=== PATIENT | female | born 1985 | race Caucasian/White ===

== ENCOUNTER 2016-11-16 07:44 | Inpatient (IN) | payer OTHER ==
[2016-11-16] MEDS ORDERED: DEXTROSE 5%-LACTATED RINGERS 1,000 ML IV SCH (09:00)
[2016-11-16] MEDS ORDERED: TUBERCULIN PPD 5 TU/0.1ML SYRINGE (IN PATIENT USE ONLY) ID ONE ×3 (09:00→10:30)
[2016-11-16 09:03] VITALS: BMI 30.5
--- NOTE | 2016-11-16 09:10 | HP ---
Past Medical History - Primary Care Physician PCP:: Collin Diaz - Admission Chief Complaint: 31yo P2 with at EGA 37w4d admitted with spontaneous active labor. History of Present Illness: care complicated by: Cholestasis of Thrombocytopenia Asthma History Source: Patient, Medical Record Limitations to Obtaining History: No Limitations - Past Medical History HOSPITAL ADMITTING CLERK: No: Alzheimer's, CVA, Dementia, Migraine, Multiple Sclerosis, Peripheral Neuropathy, Parkinson's, Seizure, Syncope, TIA, Vertigo, Other Cardiovascular: No: AFIB, Aneurysm, Aortic Insufficiency, Aortic Stenosis, CAD, CHF, Deep Vein Thrombosis, HTN, Hyperlipdemia, OR, Mitral Insufficiency, Mitral Stenosis, Murmur, Pulmonary Hypertension, Other Pulmonary: No: Asthma, Bronchitis, Cancer, COPD, O2 Dependent, Pneumonia, Previously Intubated, Pulmonary Embolus, Pulmonary Fibrosis, Sleep Apnea, Other Gastrointestinal: No: Ascites, Cancer, Constipation, Crohn's Disease, Diverticulitis, Diverticulosis, Esophageal Varices, Gastritis, GERD, GI Bleed, Hemorrhoids, Hiatal Hernia, Inflamatory Bowel Disease, Irritable Bowel Disease, Pancreatitis, Peptic Ulcer Disease, Ulcerative Colitis, Other Hepatobiliary: No: Cirrhosis, Cholelithiasis, Cholecystitis, Choledocholithiasis , Hepatitis A, Hepatitis B, Hepatitis C, Other Renal/: No: Renal Failure, Renal Inusuff, BPH, Cancer, Hematuria, Hemodialysis , Neurogenic Bladder, Renal Calculi, UTI, Other Reproductive: No: Ectopic , Endometriosis, Fibroids, PID, Polycystic Ovary Syndrome, Postmenopausal, Other ...: 3 ...Para: 2 ...Term: 2 ...: 0 ...Spon : 0 ...Induced : 0 ...EDC by Sono: 12/03/16 Heme/Onc: Yes: Anemia, Thrombocytopenia Infectious Disease: No: AIDS, C-Diff, Herpes Zoster, HIV, MRSA, STD's, Tuberculosis, VREF, Other Psych: No: Addictions, Anxiety, Bipolar, Depression, Panic, Psychosis, Schizophrenia, Other Musculoskeletal: No: Bursitis, Chronic low back pain, Hemiparesis, Hemiplegia, Osteoarthritis, Paraplegia, Other Rheumatology: No: Fibromyalgia, Gout, Lupus, Rheumatoid Arthritis, Sarcoidosis, Vasculitis, Other ENT: No: Allergic Rhinitis, Sinusitis, Other Endocrine: No: Newport's Disease, Rachelle's Disease, Diabetes Insipidus, Diabetes Mellitus, Hyperparathyroidism, Hyperthyroidism, Hypothyroidism, Osteopenia, SIADH, Other Dermatology: No: Basal Cell, Cellulitis, Eczema, Melanoma, Psoriasis, Squamous Cell, Other - Past Surgical History Past Surgical History: Yes: None Hx Myomectomy: No Hx Transabdominal Cerclage: No - Smoking History Smoking history: Never smoked Have you smoked in the past 12 months: No Aproximately how many cigarettes per day: 0 - Alcohol/Substance Use Hx Alcohol Use: No History of Substance Use: reports: None - Social History Usual Living Arrangement: Yes: With Child ADL: Independent 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 History of Recent Travel: No Home Medications - Allergies Allergies/Adverse Reactions: Allergies Allergy/AdvReac Type Severity Reaction Status Date / Time No Known Allergies Allergy Verified 09/05/16 20:33 - Home Medications Home Medications: Ambulatory Orders Ranitidine HCl [Zantac] 150 mg PO DAILY #14 tablet 09/05/16 Family Disease History - Family Disease History Family History: Denies Review of Systems - Review of Systems Constitutional: reports: Other (painful contractions) Eyes: reports: No Symptoms HENT: reports: No Symptoms Neck: reports: No Symptoms Cardiovascular: reports: No Symptoms Respiratory: reports: No Symptoms Gastrointestinal: reports: No Symptoms Genitourinary: reports: Other (contractions) Breasts: reports: No Symptoms Reported Musculoskeletal: reports: No Symptoms Integumentary: reports: No Symptoms Neurological: reports: No Symptoms Endocrine: reports: No Symptoms Hematology/Lymphatic: reports: No Symptoms Psychiatric: reports: No Symptoms Pain Intensity: 8 Physical Exam - Maternity Vital Signs: Vital Signs Temperature 97.7 F 11/16/16 07:44 Pulse Rate 81 11/16/16 07:44 Respiratory Rate 18 11/16/16 07:44 Blood Pressure 124/72 11/16/16 07:44 O2 Sat by Pulse Oximetry (%) Constitutional: Yes: Well Nourished, No Distress, Calm Eyes: Yes: WNL, Conjunctiva Clear HENT: Yes: WNL, Atraumatic, Normocephalic Neck: Yes: WNL, Supple, Trachea Midline Cardiovascular: Yes: WNL, Regular Rate and Rhythm Lungs: Clear to auscultation, Normal air movement - Abdominal Exam/OB Fundal Height: 37 Number of Fetuses: Single Presentation: Vertex Contractions: Yes Regularity: Irregular (q2-4min) Intensity: Moderate Monitor Mode: External Heart Rate (range): 135 Heart Rate Location: Midline Category: I Accelerations: Non-Uniform Decelerations: None - Vaginal Exam/OB Vaginal Bleediing: Yes Speculum Exam: No Dilatation (cm): 8 Effacement (%): 90 Amniotic Membrane Status: Ruptured (AROM) Amniotic Fluid: Yes: Clear Presentation: Vertex/Position Station: -3 - Physical Exam Musculoskeletal: Yes: WNL Extremities: Yes: WNL Edema: Yes Edema: LLE: Trace, RLE: Trace Integumentary: Yes: WNL Deep Tendon Reflex Grade: Normal +2 ...Motor Strength: WNL Psychiatric: Yes: WNL, Alert, Oriented Hemorrhage Risk Assessment - Risk Factors Medium Risk Factors: Yes: None High Risk Factors: Yes: None Risk Score: 1 Risk Level: Medium Risk Imaging - Results Ultrasound: Report Reviewed Assessment/Plan 31yo P2 with at EGA 37w4d admitted with spontaneous active labor. Fetus with Category I tracing. Plan to monitor labor and anticipate .
[2016-11-16] MEDS ORDERED: PROMETHAZINE HCL 25 MG/1 ML VIAL IVPB ONE (09:15)
[2016-11-16] MEDS ORDERED: BUTORPHANOL TARTRATE 1 MG/ML VIAL IVPB ONE (09:15)
[2016-11-16 09:25] LABS: BASOPHIL 0.4 % (0-2.0); EOSINOPHIL 1.2 % (0-4.5); MCH 25.7 pg (25.7-33.7); MCHC 32.6 g/dl (32.0-36.0); MEAN CELL VOLUME 79.1 fl (80-96); MEAN PLT VOLUME 10.6 fl (7.5-11.1); NEUTROPHILS 73.2 % (42.8-82.8); PLATELET COUNT 89 K/MM3 (134-434); WHITE BLOOD COUNT 9.1 K/mm3 (4.0-10.0)
[2016-11-16 09:44] LABS: ALBUMIN 2.8 g/dl (3.4-5.0); ALK PHOS 169 U/L (45-117); ANION GAP 11 (8-16); BILIRUBIN,TOTAL 0.3 mg/dL (0.2-1.0); CALCIUM 8.5 mg/dL (8.5-10.1); CO2 22 mmol/L (21-32); CREATININE 0.7 mg/dL (0.55-1.02); GLUCOSE,RANDOM 166 mg/dL (74-106); SGOT/AST 25 U/L (15-37); SGPT/ALT 32 U/L (12-78); TOT PROT 6.4 g/dl (6.4-8.2)
[2016-11-16 09:51] LABS: ACTIVATED PTT 25.2 SECONDS (26.9-34.4)
[2016-11-16 10:05] LABS: HIV 1 & 2 AB NEGATIVE; HIV 1 AGp24 NEGATIVE
[2016-11-16] MEDS: D5W-LR W/ 20 UNITS OXYTOCIN 1,000 ML IV SCH ×3 (10:20→18:06)
[2016-11-16] MEDS ORDERED: METHYLERGONOVINE MALEATE 0.2 MG/1 ML AMP IM PRN (11:06)
[2016-11-16] MEDS ORDERED: IBUPROFEN 600 MG TABLET (FP) PO PRN (11:06)
[2016-11-16] MEDS ORDERED: BENZOCAINE 20% 57 GM BOTTLE TP PRN (11:06)
[2016-11-16] MEDS ORDERED: BENZOCAINE 28 GM HEMORRHOIDAL OINTMENT TP PRN (11:06)
[2016-11-16] MEDS ORDERED: BISACODYL 10 MG SUPP.RECT RC PRN (11:06)
[2016-11-16] MEDS ORDERED: ACETAMINOPHEN 325 MG TABLET (FP) PO PRN (11:06)
[2016-11-16] MEDS ORDERED: WITCH HAZEL 50% (TUCKS) 40 PAD/JAR PAD TP PRN (11:06)
--- NOTE | 2016-11-16 11:12 | PN ---
Delivery - Delivery Vaginal Delivery: No Problems, Spontaneous Type of Anesthesia: Local Episiotomy/Laceration: Midline, 2nd degree (laceration) EBL (cc): 300 Delivery, Single - Stages of Labor Date 1st Stage Initiatied: 11/15/16 Time 1st Stage Initiated: 12:00 Date 2nd Stage Initiated: 11/16/16 Time 2nd Stage Initiated: 09:55 Date of Delivery: 11/16/16 Time of Delivery: 10:12 Date Placenta Delivered: 11/16/16 Time Placenta Delivered: 10:20 Placenta: Yes: Spontaneous, Normal Configuration - Condition of Assembler Equipment/Ophthalmic Technician Apprentice Present: No Gender: Female Position: OA Total Hours ROM (Hrs/Mins): 1 hour 45 min - 1 Minute Total Score: 9 5 Minutes Total Score: 10 - Feeding Plan Initial Plan: Exclusive throughout hospitalization Benefits of Exclusively reinforced: Yes
[2016-11-17 09:02] LABS: BASOPHIL 0.4 % (0-2.0); EOSINOPHIL 1.1 % (0-4.5); MCH 25.5 pg (25.7-33.7); MEAN CELL VOLUME 79.7 fl (80-96); NEUTROPHILS 80.4 % (42.8-82.8); PLATELET COUNT 84 K/MM3 (134-434); RDW 14.9 % (11.6-15.6); WHITE BLOOD COUNT 13.9 K/mm3 (4.0-10.0)
[2016-11-17] MEDS: PRENATAL VITAMINS W/ FOLIC ACID TABLET (FP) PO SCH (09:43)
[2016-11-17] MEDS ORDERED: DIPHTH,PERTUSS(ACELL),TET 0.5 ML DISP.SYRIN IM ONE (10:00)
--- NOTE | 2016-11-17 10:43 | PN ---
Post Progress Note - Subjective Subjective: No complaints Post Day: 1 Type of Delivery: Vital Signs: Vital Signs Temperature 97.8 F 11/17/16 09:09 Pulse Rate 73 11/17/16 09:09 Respiratory Rate 20 11/17/16 09:09 Blood Pressure 112/58 11/17/16 09:09 O2 Sat by Pulse Oximetry (%) Breast Exam: Yes: Soft Uterus: Yes: Fundus Firm, Fundus below umbilicus, Non-tender Abdomen/GI: Yes: Abdomen soft, Passing flatus, Tolerating PO Lochia: Yes: Rubra Lochia, amount: Small Extremities: Yes: Calves non-tender Perineum: Yes: Intact Activity: Ambulating - Labs Labs: CBC WBC 13.9 K/mm3 (4.0-10.0) H D 11/17/16 07:35 RBC 3.44 M/mm3 (3.60-5.2) L 11/17/16 07:35 Hgb 8.8 GM/dL (10.7-15.3) L D 11/17/16 07:35 Hct 27.4 % (32.4-45.2) L 11/17/16 07:35 MCV 79.7 fl (80-96) L 11/17/16 07:35 MCH 25.5 pg (25.7-33.7) L 11/17/16 07:35 MCHC 32.0 g/dl (32.0-36.0) 11/17/16 07:35 RDW 14.9 % (11.6-15.6) 11/17/16 07:35 Plt Count 84 K/MM3 (134-434) L 11/17/16 07:35 MPV 11.0 fl (7.5-11.1) 11/17/16 07:35 Neutrophils % 80.4 % (42.8-82.8) 11/17/16 07:35 Lymphocytes % 13.0 % (8-40) D 11/17/16 07:35 Monocytes % 5.1 % (3.8-10.2) 11/17/16 07:35 Eosinophils % 1.1 % (0-4.5) 11/17/16 07:35 Basophils % 0.4 % (0-2.0) 11/17/16 07:35 Assessment/Plan 31yo P3 s/p , doing well stable, afebrile. care instructions reviewed. Continue routine care. Ambulation encouraged Discharge instruction reviewed.
[2016-11-17] MEDS ORDERED: SENNOSIDES/DOCUSATE COMBO (SENNA PLUS) TABLET (UD) PO PRN (22:00)
[2016-11-18] MEDS: PRENATAL VITAMINS W/ FOLIC ACID TABLET (FP) PO SCH (09:22)
[2016-11-18 10:15] LABS: BASOPHIL 0.3 % (0-2.0); EOSINOPHIL 1.6 % (0-4.5); MCH 26.2 pg (25.7-33.7); MCHC 33.1 g/dl (32.0-36.0); MEAN CELL VOLUME 79.1 fl (80-96); MEAN PLT VOLUME 11.2 fl (7.5-11.1); NEUTROPHILS 79.8 % (42.8-82.8); PLATELET COUNT 121 K/MM3 (134-434); RDW 15.3 % (11.6-15.6); WHITE BLOOD COUNT 13.3 K/mm3 (4.0-10.0)
[2016-11-18 10:22] VITALS: BP 117/58; PULSE 82; TEMP 98.1
--- NOTE | 2016-11-18 10:48 | DS ---
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 Vital Signs: Vital Signs Temperature 98.1 F 11/18/16 10:00 Pulse Rate 82 11/18/16 10:00 Respiratory Rate 18 11/18/16 10:00 Blood Pressure 117/58 11/18/16 10:00 O2 Sat by Pulse Oximetry (%) Constitutional: Yes: Well Nourished, No Distress, Calm Eyes: Yes: WNL, Conjunctiva Clear HENT: Yes: WNL, Atraumatic, Normocephalic Neck: Yes: WNL, Supple, Trachea Midline Cardiovascular: Yes: WNL, Regular Rate and Rhythm Respiratory: Yes: WNL, Regular, CTA Bilaterally Gastrointestinal: Yes: WNL, Normal Bowel Sounds, Soft ...Rectal Exam: Yes: Deferred Renal/: Yes: WNL Internal Exam Deferred: Yes ....Post : Yes: Uterus firm, Uterus non-tender Breast(s): Yes: WNL Musculoskeletal: Yes: WNL Extremities: Yes: WNL Edema: Yes Edema: LLE: Trace, RLE: Trace Integumentary: Yes: WNL Neurological: Yes: WNL, Alert, Oriented ...Motor Strength: WNL Psychiatric: Yes: WNL, Alert, Oriented Labs: CBC, BMP 11/18/16 10:00 11/16/16 09:00 Delivery - Delivery Vaginal Delivery: No Problems, Spontaneous Type of Anesthesia: Local Episiotomy/Laceration: Midline, 2nd degree (laceration) EBL (cc): 300 Delivery, Single - Stages of Labor Date 1st Stage Initiatied: 11/15/16 Time 1st Stage Initiated: 12:00 Date 2nd Stage Initiated: 11/16/16 Time 2nd Stage Initiated: 09:55 Date of Delivery: 11/16/16 Time of Delivery: 10:12 Time Placenta Delivered: 10:20 Placenta: Yes: Spontaneous, Normal Configuration - Condition of Locks Tender/Director Print Present: No Gender: Female Weight: 3.062 kg Position: OA Total Hours ROM (Hrs/Mins): 1 hour 45 min - 1 Minute Total Score: 9 5 Minutes Total Score: 10 - Feeding Plan Initial Plan: Exclusive throughout hospitalization Benefits of Exclusively reinforced: Yes Discharge Summary Reason For Visit: LABOR Procedures: Principal: Hospital Course: Normal recovery Condition: Good - Instructions Diet, Activity, Other Instructions: Physical activity Resume your normal everyday activity as tolerated no heavy lifting or exercise until seen by your surgeon. You may walk unlimited harjinder of and climb stairs. You may resume driving the car when you feel safe and comfortable behind the wheel. No sexual activity as instructed. Wound care If you have a bandage, leave it on, and keep dry for 48-72 hours. After that time discard the outer bandage. If they are tapes on the skin under the out of bandage leave them in place. They will peel off in the next 7 to 10 days. Do Not Peel them off. You may shower the day after surgery. If there are tapes present on the skin, you may shower over them. Diet There are no dietary restrictions. Eat healthy, high-fiber foods. Drink 6 to 8 glasses of liquid each day. This will assist in keeping your bowels are regular. Pain management You may take Tylenol or acetaminophen or Ibuprofen (for example, Motrin, Advil etc.) from my pain prescription medication is ordered should be taken as prescribed for moderate to severe pain. Call MD for any of the following: Severe pain not relieved by medication Fever of 101 or higher Excessive bleeding or drainage on dressing Inability to urinate Referrals: Taylor Muniz MD [Staff Physician] - Disposition: HOME - Home Medications Comprehensive Discharge Medication List: Ambulatory Orders Albuterol Sulfate Inhaler - [Ventolin HFA Inhaler -] 2 inh PO PRN PRN 11/16/16 Vit/Iron Fumarate/FA [ Tablet] 1 tab PO DAILY 11/16/16
[2016-11-18] MEDS: D5W-LR W/ 20 UNITS OXYTOCIN 1,000 ML IV SCH (11:13)
== END 2016-11-18 13:45 | disposition home or self-care (01) | DRG 560 ==
LOC: JLDR 07:44 → MERGE 07:44 → J3W 12:45
PROVIDERS: ADMIT Obstetrics & Gynecology; ATTEND Obstetrics & Gynecology
PROC: 10E0XZZ Delivery of Products of Conception, External Approach (ICD-10-PCS; principal; 2016-11-16)
PROC: 0W8NXZZ Division of Female Perineum, External Approach (ICD-10-PCS; 2016-11-16)
PROC: 0KQM0ZZ Repair Perineum Muscle, Open Approach (ICD-10-PCS; 2016-11-16)
DX: O99.113 Other diseases of the blood and blood-forming organs and certain disorders involving the immune mechanism complicating pregnancy, third trimester (principal); O26.613 Liver and biliary tract disorders in pregnancy, third trimester; K83.1 Obstruction of bile duct; D69.6 Thrombocytopenia, unspecified; O70.1 Second degree perineal laceration during delivery; O26.893 Other specified pregnancy related conditions, third trimester; J45.909 Unspecified asthma, uncomplicated; Z3A.37 37 weeks gestation of pregnancy; Z37.0 Single live birth
CPT/HCPCS: 36415; 59409; 80053; 85025; 85610; 85730; 86593; 86850; 86900; 86901; 87389; 90715

== ENCOUNTER 2017-04-17 17:39 | Emergency (ER) | payer OTHER ==
[2017-04-17] MEDS ORDERED: ALBUTEROL SO4 2.5/IPRATROPIUM 0.5 INH SOL 3 ML VIAL.NEB. NEB ONE ×4 (17:49→18:45)
--- NOTE | 2017-04-17 17:49 | PDOC ---
Rapid Medical Evaluation Time Seen by Provider: 04/17/17 17:48 Medical Evaluation: Allergies Allergy/AdvReac Type Severity Reaction Status Date / Time No Known Allergies Allergy Verified 09/05/16 20:33 04/17/17 17:48 The patient presents with a chief complaint of: Asthma attack last night which woke her from sleep. used nebulizer at home 4 times; instructed to come in by PCP. No fevers/cold like symptoms I have performed a brief in-person evaluation of this patient; Pertinent physical exam findings: Inspiratory and expiratory wheezing. Afebrile , O2 sat 98 % I have ordered the following: Duoneb The patient will proceed to the ED for further evaluation.
[2017-04-17 17:52] VITALS: BP 116/74; PULSE 87; TEMP 98.8; BMI 26.9
[2017-04-17] MEDS ORDERED: predniSONE 20 MG TABLET (UD) PO ONE (18:37)
--- NOTE | 2017-04-17 18:43 | PDOC ---
History of Present Illness - General Chief Complaint: Wheezing Stated Complaint: ASTHMA Time Seen by Provider: 04/17/17 17:48 History Source: Patient Exam Limitations: No Limitations - History of Present Illness Initial Comments: 04/17/17 18:38 Patient here with complaints of acute onset of asthma attack. was sleeping this morning when was awakened at 1 AM with shortness of breath and wheezing. Denies being ill recently, no fevers earache sore throat. No One else at home sick Suffers from seasonal ALLERGIES and has had asthma but no recent attacks since last spring. used pump a few times with minimal resolved, then got up and do sense nebulizer which helped her sleep however has used his nebulizing treatment 3 more times today. Went felt that asthma attack was not stopping decided to come to ER for evaluation. States on her arrival it was difficult to speak due to her shortness of breath Severity: reports: moderate Associated Symptoms: reports: cough, nasal congestion, wheezing. denies: fever/ chills Past History - Travel Traveled outside of the country in the last 30 days: No Close contact w/someone who was outside of country & ill: No - Past Medical History Allergies/Adverse Reactions: Allergies Allergy/AdvReac Type Severity Reaction Status Date / Time No Known Allergies Allergy Verified 04/17/17 17:51 Home Medications: Ambulatory Orders Albuterol 0.083% Nebulizer Rebekah [Ventolin 0.083% Nebulizer Soln -] 1 neb NEB Q4H PRN #30 vial 04/17/17 Prednisone [Deltasone -] 20 mg PO BID #8 tablet 04/17/17 Asthma: Yes Cancer: No Cardiac Disorders: No COPD: No Diabetes: No HTN: No Seizures: No Thyroid Disease: No - Immunization History Immunization Up to Date: Yes - Suicide/Smoking/Psychosocial Hx Smoking Status: No Smoking History: Never smoked Have you smoked in the past 12 months: No Number of Cigarettes Smoked Daily: 0 Information on smoking cessation initiated: No Hx Alcohol Use: No Drug/Substance Use Hx: No Substance Use Type: None Hx Substance Use Treatment: No Respiratory Specific PMHX - Complaint Specific PMHX Angina: No Review of Systems - Review of Systems Able to Perform ROS?: Yes Is the patient limited Belarusian proficient: Yes Constitutional: Yes: Symptoms Reported, See HPI, Malaise. No: Chills, Fever HEENTM: Yes: Symptoms Reported, See HPI, Nose Congestion Respiratory: Yes: Symptoms reported, See HPI, Wheezing Integumentary: Yes: Symptoms Reported Neurological: Yes: Symptoms reported All Other Systems: Reviewed and Negative *Physical Exam - Vital Signs Last Vital Signs Temp Pulse Resp BP Pulse Ox 98.8 F 87 19 116/74 99 04/17/17 17:49 04/17/17 17:49 04/17/17 17:49 04/17/17 17:49 04/17/17 17:49 - Physical Exam General Appearance: Yes: Appropriately Dressed, Apparent Distress HEENT: positive: FANNY, Normal ENT Inspection, TMs Normal, Pharynx Normal Neck: positive: Tender, Supple. negative: Lymphadenopathy (R), Lymphadenopathy (L) Respiratory/Chest: positive: Lungs Clear, Wheezing. negative: Normal Breath Sounds Gastrointestinal/Abdominal: positive: Soft. 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 NML intact, Fully Oriented, Alert, Normal Mood/ Affect, Normal Response, Motor Strength 5/5 ED Treatment Course - Medications Given in the ED: ED Medications Discontinued Medications Generic Name Dose Route Start Last Admin Trade Name Freq PRN Reason Stop Dose Admin Albuterol/Ipratropium 1 amp 04/17/17 17:49 04/17/17 17:57 Duoneb - NEB 04/17/17 17:50 1 amp ONCE ONE Administration Progress Note - Progress Note Progress Note: Asthma exacerbation we'll treat with DuoNeb nebs and steroids Medical Decision Making - Medical Decision Making 04/17/17 19:35 Patient much improved after 3 DuoNeb's, and prednisone. States feels she is able to take deep inspirations with less wheezing and ready for discharge. *DC/Admit/Observation/Transfer Diagnosis at time of Disposition: Asthma with exacerbation Qualifiers: Asthma severity: moderate Asthma persistence: unspecified Qualified Code(s): J45.901 - Unspecified asthma with (acute) exacerbation - Discharge Dispostion Disposition: HOME Condition at time of disposition: Stable Admit: No - Prescriptions Prescriptions: Albuterol 0.083% Nebulizer Rebekah [Ventolin 0.083% Nebulizer Soln -] 1 neb NEB Q4H PRN #30 vial PRN Reason: Cough Prednisone [Deltasone -] 20 mg PO BID #8 tablet - Referrals Referrals: Sung Santiago [Primary Care Provider] - - Patient Instructions Printed Discharge Instructions: DI for Asthma -- Adult Additional Instructions: Rest, drink lots of fluids: Teas, water, soups, Pedialyte Saltwater gargles Steamy showers/seem to face break up mucus Avoid contact with others until fevers and cough resolved Lots of handwashing and good hygiene Continue [id number] medications for symptomatic relief Tylenol or Motrin for fever and pain Continue albuterol nebulizers every 4-6 hours for the next 2 days then as needed for continued cough Prednisone as directed until completed Followup with private physician in one to 2 days Return to emergency department / pediatric hospital for worsened symptoms, fevers, dehydration - Post Discharge Activity Forms/Work/School Notes: Back to Work
[2017-04-17] MEDS ORDERED: predniSONE 20 MG TABLET (UD) ONE (18:44)
== END 2017-04-17 19:43 | disposition home or self-care (01) ==
LOC: JERFT 17:39
PROC: 3E0F7GC Introduction of Other Therapeutic Substance into Respiratory Tract, Via Natural or Artificial Opening (ICD-10-PCS; principal; 2017-04-17)
DX: J45.901 Unspecified asthma with (acute) exacerbation (principal)
CPT/HCPCS: 99281-25

== ENCOUNTER 2017-04-30 22:41 | Emergency (ER) | payer OTHER ==
[2017-04-30 23:04] VITALS: BP 102/60; PULSE 90; TEMP 98.5; BMI 26.5
--- NOTE | 2017-05-01 01:29 | PDOC ---
History of Present Illness - History of Present Illness Initial Comments: 05/01/17 02:00 Patient is 32F with PMHx of asthma, who presents with 1 week of generalized malaise and head/neck lymph node. Patient states she has a lymph node near the back of her neck, underneath her head and states its only a little bothersome. She also admits to tactile fever but says she hasn't taken her temperature. Denies sick contacts. She came to the ED because she has a 5 months and is so she wants to make sure she is healthy. Allergies: NKDA <Nedra Richards - Last Filed: 05/01/17 01:59> - General History Source: Patient <RemiCooper cabrera - Last Filed: 05/01/17 04:12> - General Chief Complaint: Pain Stated Complaint: HEADACHE Time Seen by Provider: 05/01/17 01:20 Past History <Nedra Richards - Last Filed: 05/01/17 01:59> - Past Medical History Asthma: Yes Cancer: No Cardiac Disorders: No COPD: No Diabetes: No HTN: No Seizures: No Thyroid Disease: No - Immunization History Immunization Up to Date: Yes - Suicide/Smoking/Psychosocial Hx Smoking Status: No Smoking History: Never smoked Have you smoked in the past 12 months: No Number of Cigarettes Smoked Daily: 0 Hx Alcohol Use: No Drug/Substance Use Hx: No Substance Use Type: None Hx Substance Use Treatment: No <Cooper Casiano - Last Filed: 05/01/17 04:12> - Past Medical History Allergies/Adverse Reactions: Allergies Allergy/AdvReac Type Severity Reaction Status Date / Time No Known Allergies Allergy Verified 04/30/17 23:00 Home Medications: Ambulatory Orders Albuterol Sulfate Inhaler - [Ventolin Hfa Inhaler -] 1 - 2 inh PO QID PRN Review of Systems - Review of Systems Comments:: 05/01/17 02:03 CONSTITUTIONAL: Present: tactile fever, generalized malaise HEENT: Present: Head/neck lymph node Absent: visual changes, ear pain, no sore throat CARDIOVASCULAR: Absent: chest pain, no palpitations RESPIRATORY: Absent: cough, no SOB GI: Absent: abdominal pain, no nausea, no vomiting, no constipation, no diarrhea GENITOURINARY: Absent: dysuria, no frequency, no hematuria MUSCULOSKELETAL: Absent: back pain, no arthralgia, no myalgia SKIN: Absent: rash <Nedra Richards - Last Filed: 05/01/17 01:59> *Physical Exam - Vital Signs Last Vital Signs Temp Pulse Resp BP Pulse Ox 98.5 F 90 18 102/60 96 04/30/17 23:01 04/30/17 23:01 04/30/17 23:01 04/30/17 23:01 04/30/17 23:01 - Physical Exam Comments: 05/01/17 02:05 GENERAL: Well-appearing, well-nourished. No apparent distress. HEENT: Normocephalic, atraumatic. PERRL, EOM intact. CARDIOVASCULAR: Normal S1, S2. Regular rate and rhythm. PULMONARY: Clear to auscultation bilaterally. ABDOMEN: Soft, non-distended, non-tender. EXTREMITIES: Normal ROM in all four extremities. No gross deformities. SKIN: Warm, dry. No rash NEUROLOGICAL: No focal neurological deficits. <Nedra Richards - Last Filed: 05/01/17 01:59> - Vital Signs Last Vital Signs Temp Pulse Resp BP Pulse Ox 98.5 F 90 18 102/60 96 04/30/17 23:01 04/30/17 23:01 04/30/17 23:01 04/30/17 23:01 04/30/17 23:01 <Cooper Casiano - Last Filed: 05/01/17 04:12> Medical Decision Making - Medical Decision Making 05/01/17 04:12 Dr. Casiano: The scribe's documentation has been prepared under my direction and personally reviewed by me in its entirery. I confirm that the note above accurately reflects all work, treatment, procedures, and medical decision making performed by me. <Cooper Casiano - Last Filed: 05/01/17 04:12> *DC/Admit/Observation/Transfer - Attestations Scribe Attestion: 05/01/17 02:05 Documentation prepared by Nedra Richards, acting as medical equipment repair technician for Cooper Casiano MD. <Nedra Richards - Last Filed: 05/01/17 01:59> - Discharge Dispostion Admit: No <Cooper Casiano - Last Filed: 05/01/17 04:12> Diagnosis at time of Disposition: Neck pain, Lymph node enlargement - Discharge Dispostion Disposition: HOME Condition at time of disposition: Stable - Referrals Referrals: Sung Santiago [Primary Care Provider] - - Patient Instructions Printed Discharge Instructions: DI for Neck Pain Additional Instructions: Please follow up with your doctor to revaluate the lymph node in the back of your neck if it appears to get worse. - Post Discharge Activity
== END 2017-05-01 04:15 | disposition home or self-care (01) ==
LOC: JER 22:41
DX: R59.9 Enlarged lymph nodes, unspecified (principal); M54.2 Cervicalgia
CPT/HCPCS: 87804; 99281-25

== ENCOUNTER 2017-05-22 12:19 | Emergency (ER) | payer OTHER ==
[2017-05-22 12:46] VITALS: BP 108/65; PULSE 97; TEMP 98; BMI 26.5
[2017-05-22] MEDS ORDERED: ALBUTEROL SO4 2.5/IPRATROPIUM 0.5 INH SOL 3 ML VIAL.NEB. NEB ONE ×2 (14:01→14:09)
--- NOTE | 2017-05-22 14:13 | PDOC ---
History of Present Illness - General Chief Complaint: Asthma Stated Complaint: ASTHMA, WHEEZING Time Seen by Provider: 05/22/17 13:51 History Source: Patient Exam Limitations: No Limitations - History of Present Illness Initial Comments: 05/22/17 14:11 Patient is a 32-year-old female, history of asthma currently taking albuterol when necessary presents with cough and wheezing for 5 days. Reports using her albuterol at home every 4 hours still with wheezing. Reports last time she had this she needed steroids. Patient able to speak full sentences, denies chest pain. Past Medical History: [Denies]. Allergies: No known allergies Medications: [Abuser all] Family History: Non-contributory Social History: Denies smoking, alcohol use, or IVDU Vital signs on arrival are [notable for pulse of 96.] Review of Systems GENERAL/CONSTITUTIONAL: [No fever or chills. No weakness. No weight change.] HEAD, EYES, EARS, NOSE AND THROAT: [No change in vision. No ear pain or discharge. No sore throat. ] CARDIOVASCULAR: [No chest pain or shortness of breath.] RESPIRATORY: [Cough and wheezing, no hemoptysis] GASTROINTESTINAL: [No nausea, vomiting, diarrhea or constipation. No rectal bleeding.] GENITOURINARY: [No dysuria, frequency, or change in urination.] MUSCULOSKELETAL: [No joint or muscle swelling or pain. No neck or back pain.] SKIN AND BREASTS: [No rash or easy bruising.] NEUROLOGIC: [No headache, vertigo, loss of consciousness, or loss of sensation.] PSYCHIATRIC: [No depression or anxiety.] ENDOCRINE: [No increased thirst. No abnormal weight change.] HEMATOLOGIC/LYMPHATIC: [No anemia, easy bleeding, or history of blood clots.] ALLERGIC/IMMUNOLOGIC: [No hives or skin allergy. No latex allergy.] Physical Exam: GENERAL: [The patient is awake, alert, and fully oriented, in no acute distress. ] EYES: [Pupils equal, round and reactive to light, extraocular movements intact, sclera anicteric, conjunctiva clear.] ENT: [Ears normal, nares patent, oropharynx clear without exudates. Moist mucous membranes. No uvula deviation] NECK: [Normal range of motion, supple without lymphadenopathy, JVD, or masses.] LUNGS: [Expiratory wheezes, no rhonchi, no crackles] HEART: [Regular rate and rhythm, normal S1 and S2 without murmur, rub or gallop. ] ABDOMEN: [Soft, nontender, normoactive bowel sounds. No guarding, no rebound. No masses. No bruising or abrasions] MUSCULOSKELETAL: [Normal range of motion, no edema. No clubbing or cyanosis. No cords, erythema, or tenderness. No CVA Tenderness with fist.] NEUROLOGICAL: [Cranial nerves II through XII grossly intact. Normal speech, normal gait.] SKIN: [Warm, Dry, normal turgor, no rashes or lesions noted.] Past History - Past Medical History Allergies/Adverse Reactions: Allergies Allergy/AdvReac Type Severity Reaction Status Date / Time No Known Allergies Allergy Verified 05/22/17 12:42 Home Medications: Ambulatory Orders Prednisone [Deltasone] 20 mg PO DAILY #5 tablet 05/22/17 Asthma: Yes Cancer: No Cardiac Disorders: No CVA: No COPD: No DVT: No Diabetes: No HTN: No Seizures: No Thyroid Disease: No - Immunization History Immunization Up to Date: Yes - Suicide/Smoking/Psychosocial Hx Smoking Status: No Smoking History: Never smoked Have you smoked in the past 12 months: No Number of Cigarettes Smoked Daily: 0 Information on smoking cessation initiated: No Hx Alcohol Use: No Drug/Substance Use Hx: No Substance Use Type: None Hx Substance Use Treatment: No Respiratory Specific PMHX - Complaint Specific PMHX Angina: No *Physical Exam - Vital Signs Last Vital Signs Temp Pulse Resp BP Pulse Ox 98.0 F 97 H 20 108/65 96 05/22/17 12:43 05/22/17 12:43 05/22/17 12:43 05/22/17 12:43 05/22/17 12:43 Medical Decision Making - Medical Decision Making 05/22/17 14:12 A/P: Patient with asthma exacerbation wheezing noted, expiratory. Will give Combivent and prednisone. 05/22/17 14:54 After Combivent, there is a mild expiratory wheeze noted on the right side will discharge patient home on prednisone she is breast-feeding will give 20 mg per day I have advised patient to breast-feed at least 4 hours after taking medication. Albuterol when necessary Follow-up with PMD if symptoms persist *DC/Admit/Observation/Transfer Diagnosis at time of Disposition: Asthma with exacerbation Qualifiers: Asthma severity: mild Asthma persistence: intermittent Qualified Code(s): J45.21 - Mild intermittent asthma with (acute) exacerbation - Discharge Dispostion Disposition: HOME Condition at time of disposition: Stable Admit: No - Prescriptions Prescriptions: Prednisone [Deltasone] 20 mg PO DAILY #5 tablet - Referrals Referrals: Sung Santiago [Primary Care Provider] - - Patient Instructions Printed Discharge Instructions: Asthma -- Adult Additional Instructions: Keep head of bed elevated 45 when sleeping Treatments every 4 hours as needed Cool air humidifier Followup in the primary care doctor's office in 2 days for evaluation. If any respiratory distress, increased cough, inability to drink, increased wheezing please return immediately to emergency department. - Post Discharge Activity Forms/Work/School Notes: Back to Work
== END 2017-05-22 14:59 | disposition home or self-care (01) ==
LOC: JERFT 12:19
PROC: 3E0F7GC Introduction of Other Therapeutic Substance into Respiratory Tract, Via Natural or Artificial Opening (ICD-10-PCS; principal; 2017-05-22)
DX: J45.21 Mild intermittent asthma with (acute) exacerbation (principal)
CPT/HCPCS: 99281-25

== ENCOUNTER 2019-11-27 11:59 | Emergency (ER) | payer OTHER ==
[2019-11-27 12:18] VITALS: BMI 24.7
[2019-11-27] MEDS ORDERED: ALBUTEROL SO4 2.5/IPRATROPIUM 0.5 INH SOL 3 ML VIAL.NEB. NEB ONE ×3 (12:20→14:03)
[2019-11-27] MEDS ORDERED: predniSONE 20 MG TABLET (UD) PO ONE (12:47)
--- NOTE | 2019-11-27 12:52 | PDOC ---
Attending Attestation - Resident Resident Name: Radames Hoffman - HPI HPI: 11/27/19 12:54 Pt presents to the ED complaining of a one week history of wheezing and shortness of breath consistent with prior asthma exacerbations. states that she has tried albuterol inhaler and nebs at home without relief. States that she was seen in Urgent care twice for the same complaint and that she was given a covid test which has not been resulted yet, but otherwise told that she was fine and to go home. Denies fever. Complains of chest tightness and some palpitations, but denies chest pain. History of asthma without hospitalizations or intubations in the past. - Physicial Exam PE: 11/27/19 13:09 agree with resident exam. Patient is alert and in no acute distress. Lungs are clear, with good air entry. Patient is not tachypneic and is speaking in complete sentences. - Medical Decision Making 11/27/19 13:11 Pt presents to the ED complaining of wheezing and shortness of breath consistent with prior asthma exacerbations. Patient is feeling improved after duoneb x 1 and has no respiratory distress. Will treat with nebs and steroids and reassess, likely discharge home with short course of PO prednisone and PCP follow up. Discharge - Discharge Information Problems reviewed: Yes Clinical Impression/Diagnosis: Asthma with exacerbation Qualifiers: Asthma severity: mild Asthma persistence: unspecified Qualified Code(s): J45.901 - Unspecified asthma with (acute) exacerbation Condition: Improved Disposition: HOME - Additional Discharge Information Prescriptions: predniSONE [Deltasone -] 40 mg PO DAILY #10 tablet - Follow up/Referral Referrals: Sung Santiago [Primary Care Provider] - - Patient Discharge Instructions Additional Instructions: You were seen today, 11/27/19, for an episode of acute asthma exacerbation. You were treated with 3 doses of duoneb and 1 dose of 60 mg of Prednisone. You reported significant improvement on re evaluation. You did not have any active wheezing auscultated in physical exam. You were clinically stable to go home. Please follow up with your primary care doctor within the next two days to discuss management of your asthma Take prednisone 40 mg orally ( 2 tablets) every day for 5 days. Please return to ER immediately if you experience: - respiratory distress - chest pain, chest tightness - increased wheezing - any changes form your baseline - Post Discharge Activity
[2019-11-27] MEDS ORDERED: predniSONE 20 MG TABLET (UD) ONE (12:54)
--- NOTE | 2019-11-27 12:58 | PDOC ---
History of Present Illness - General Chief Complaint: Shortness of Breath Stated Complaint: ASTHMA Time Seen by Provider: 11/27/19 12:19 History Source: Patient - History of Present Illness Initial Comments: Lexi Rasmussen is a 34 Y F with PMH of Asthma, presents with 1 weeks of wheezing , SOB and chest tightness. She tried albuterol nebulizer and montelucast at home without any improvements. Last similar episode was last year, presented to ER, and resolved after treatments with douneb and prednisone. She reports her asthma is usually under control, but can be exacerbated with allergies. She reports t hat she had uri symptoms few days ago, resolved, sorethroat, nasal congestion, and cough. No known covid in family, children had similar symptoms and recovered. She does not smoke, social alcohol and no illicit drugs. LMP 4 weeks ago. Most recent asthma exacerbation was last year. No previous Hx of hospitalization or intubation, due to asthma exacerbation. Home meds: albuterol and montelucast 11/27/19 12:49 Timing/Duration: 1 week Severity: moderate Past History - Travel History Traveled outside of the country in the last 30 days: No - Medical History Allergies/Adverse Reactions: Allergies Allergy/AdvReac Type Severity Reaction Status Date / Time No Known Allergies Allergy Verified 11/27/19 12:10 Home Medications: Ambulatory Orders Albuterol 0.083% Nebulizer Rebekah [Ventolin 0.083%] 1 neb NEB QID PRN 11/27/19 Montelukast Na [Singulair -] 10 mg PO HS 11/27/19 predniSONE [Deltasone -] 40 mg PO DAILY #10 tablet 11/27/19 Asthma: Yes Cancer: No Cardiac Disorders: No CVA: No COPD: No DVT: No Diabetes: No HTN: No Seizures: No Thyroid Disease: No - Reproductive History Is Patient Now?: No - Immunization History Immunization Up to Date: Yes - Psycho-Social/Smoking History Smoking Status: No Smoking History: Never smoked Have you smoked in the past 12 months: No Number of Cigarettes Smoked Daily: 0 - Substance Abuse Hx (Audit-C & DAST Scrn) How often the patient has a drink containing alcohol: Monthly or less Score: In Men: 4 or > Positive; In Women: 3 or > Positive: 1 Screen Result (Pos requires Nsg. Audit-10AR): Negative In the last yr the pt used illegal drug/Rx for NonMed reason: No Score: Yes response is considered Positive: 0 Screen Result (Positive result requires Nsg. DAST-10): Negative Review of Systems - Review of Systems Constitutional: No: Chills, Fever HEENTM: No: Blurred Vision, Nose Congestion, Throat Pain, Difficulty Swallowing Respiratory: Yes: Cough, Shortness of Breath, Wheezing Cardiac (ROS): Yes: Chest Tightness. No: Chest Pain, Edema, Palpitations ABD/GI: No: Diarrhea, Difficulty Swallowing, Nausea, Vomiting : No: Dysuria, Discharge, Flank Pain Musculoskeletal: No: Back Pain Integumentary: No: Change in Color Neurological: Yes: Headache. No: Numbness, Paresthesia Psychiatric: Yes: Anxiety *Physical Exam - Vital Signs Last Vital Signs Temp Pulse Resp BP Pulse Ox 98.1 F 90 22 H 106/70 99 11/27/19 12:15 11/27/19 12:15 11/27/19 12:15 11/27/19 12:15 11/27/19 12:38 - Physical Exam General Appearance: Yes: Appropriately Dressed, Mild Distress HEENT: positive: EOMI, FANNY. negative: Nasal Congestion, Rhinorrhea Neck: positive: Supple. negative: Carotid bruit Respiratory/Chest: positive: Lungs Clear, Normal Breath Sounds, Wheezing (Anterior chest wall, expiratory). negative: Chest Tender, Rales, Rhonchi Cardiovascular: positive: Regular Rhythm, Regular Rate, S1, S2. negative: Edema, JVD, Murmur Vascular Pulses: Carotid (R): 2+, Carotid (L): 2+, Dorsalis-Pedis (R): 2+, Doralis-Pedis (L): 2+ Gastrointestinal/Abdominal: positive: Normal Bowel Sounds, Soft. negative: Tender Musculoskeletal: positive: Normal Inspection Extremity: positive: Normal Inspection Integumentary: positive: Normal Color, Warm, Moist Neurologic: positive: Fully Oriented, Alert, Motor Strength 5/5 Medical Decision Making - Medical Decision Making 34 Y F with PMH of Asthma, presents with 1 weeks of wheezing , SOB and chest tightness. She tried albuterol nebulizer and montelucast at home without any improvements. #acute asthma exacerbation - 1 week, not resolving with home meds - EKG - Duoneb + Prednisone PO 60mg - Dispo: reeval 11/27/19 12:58 11/27/19 14:19 - completed 3 doses of duoneb + 60mg of Prednisone - patient reports she feels much better now, no wheezing - Dispo: Re-eval and d/c home. Discharge - Discharge Information Problems reviewed: Yes Clinical Impression/Diagnosis: Asthma with exacerbation Qualifiers: Asthma severity: mild Asthma persistence: unspecified Qualified Code(s): J45.901 - Unspecified asthma with (acute) exacerbation Condition: Improved Disposition: HOME - Additional Discharge Information Prescriptions: predniSONE [Deltasone -] 40 mg PO DAILY #10 tablet - Follow up/Referral Referrals: Sung Santiago [Primary Care Provider] - - Patient Discharge Instructions Additional Instructions: You were seen today, 11/27/19, for an episode of acute asthma exacerbation. You were treated with 3 doses of duoneb and 1 dose of 60 mg of Prednisone. You reported significant improvement on re evaluation. You did not have any active wheezing auscultated in physical exam. You were clinically stable to go home. Please follow up with your primary care doctor within the next two days to discuss management of your asthma Take prednisone 40 mg orally ( 2 tablets) every day for 5 days. Please return to ER immediately if you experience: - respiratory distress - chest pain, chest tightness - increased wheezing - any changes form your baseline - Post Discharge Activity
[2019-11-27 15:03] VITALS: BP 113/70; PULSE 92; TEMP 97.8
--- NOTE | 2019-11-29 21:52 | EKG ---
Test Reason : Blood Pressure : / mmHG Vent. Rate : 098 BPM Atrial Rate : 098 BPM P-R Int : 158 ms QRS Dur : 070 ms QT Int : 352 ms P-R-T Axes : 026 022 031 degrees QTc Int : 449 ms NORMAL SINUS RHYTHM NORMAL ECG WHEN COMPARED WITH ECG OF 08-JUN-2018 10:08, VENT. RATE HAS INCREASED BY 37 BPM Confirmed by DAVE BLANTON MD ([id number]) on 11/29/2019 9:51:34 PM Referred By: Confirmed By:DAVE BLANTON MD
== END 2019-11-27 14:45 | disposition home or self-care (01) ==
LOC: JER 11:59
PROC: 3E0F7GC Introduction of Other Therapeutic Substance into Respiratory Tract, Via Natural or Artificial Opening (ICD-10-PCS; principal; 2019-11-27)
DX: J45.901 Unspecified asthma with (acute) exacerbation (principal)
CPT/HCPCS: 93005; 93010; 99284-25

== ENCOUNTER 2020-08-09 09:18 | Emergency (ER) | payer OTHER ==
[2020-08-09 09:22] VITALS: BP 111/62; PULSE 76; TEMP 98.3; BMI 28.9
[2020-08-09 10:15] LABS: BASO % 0.9 % (0-2.0); EOS % 2.2 % (0-4.5); HEMATOCRIT 40.2 % (32.4-45.2); HEMOGLOBIN 13.8 GM/dL (10.7-15.3); LYMPH % 25.1 % (8-40); MCH 29.7 pg (25.7-33.7); MCHC 34.3 g/dl (32.0-36.0); MEAN CELL VOLUME 86.4 fl (80-96); MEAN PLT VOLUME 11.5 fl (7.5-11.1); MONO % 7.5 % (3.8-10.2); NEUT % 64.3 % (42.8-82.8); PLATELET COUNT 152 K/MM3 (134-434); RBC 4.65 M/mm3 (3.60-5.2); RDW 14.2 % (11.6-15.6)
[2020-08-09 10:40] LABS: BLOOD UREA NITROGEN 15.3 mg/dL (7-18); CALCIUM 9.4 mg/dL (8.5-10.1)
[2020-08-09 10:45] LABS: BILIRUBIN,TOTAL 0.5 mg/dL (0.2-1); CREATININE 0.7 mg/dL (0.55-1.3); TOT PROT 7.8 g/dl (6.4-8.2)
== END 2020-08-09 11:41 | disposition home or self-care (01) ==
LOC: JERFT 09:18
DX: M79.662 Pain in left lower leg (principal)
CPT/HCPCS: 36415; 80053; 85025; 93971-TC; 99284-25

== ENCOUNTER 2020-10-13 17:57 | Emergency (ER) | payer OTHER ==
[2020-10-13 18:11] VITALS: BMI 29.2
[2020-10-13] MEDS ORDERED: CLINDAMYCIN 600MG PREMIX IVPB 600 MG/50 ML BAG IVPB ONE ×2 (18:49→19:03)
[2020-10-13 19:35] LABS: BASO % 0.6 % (0-2.0); EOS % 1.7 % (0-4.5); HEMATOCRIT 40.7 % (32.4-45.2); HEMOGLOBIN 13.8 GM/dL (10.7-15.3); LYMPH % 18.5 % (8-40); MCH 29.2 pg (25.7-33.7); MCHC 33.9 g/dl (32.0-36.0); MEAN CELL VOLUME 86.1 fl (80-96); MEAN PLT VOLUME 10.4 fl (7.5-11.1); MONO % 7.6 % (3.8-10.2); NEUT % 71.6 % (42.8-82.8); PLATELET COUNT 160 10^3/uL (134-434); RBC 4.73 M/mm3 (3.60-5.2); RDW 13.7 % (11.6-15.6); WHITE BLOOD COUNT 10.5 K/mm3 (4.0-10.0)
[2020-10-13 19:40] LABS: HCG,QUALITATIVE URINE Negative
[2020-10-13 19:44] LABS: EPI CELLS 9 /uL (0-25.1); HYALINE CASTS 0 /uL (0-3.1); PH,URINE 7.5 (5.0-8.0); URINE APPEARANCE CLEAR; URINE BACTERIA 63 /uL (0-1359); URINE BILIRUBIN NEGATIVE (NEGATIVE); URINE COLOR YELLOW; URINE GLUCOSE (UA) NEGATIVE (NEGATIVE); URINE KETONE NEGATIVE (NEGATIVE); URINE LEUK ESTERASE TRACE (NEGATIVE); URINE NITRITE NEGATIVE (NEGATIVE); URINE PROTEIN NEGATIVE (NEGATIVE); URINE RBC 4 /uL (0-23.9); URINE WBC 13 /uL (0-25.8)
[2020-10-13 19:45] LABS: CALCIUM 9.3 mg/dL (8.5-10.1)
[2020-10-13 19:46] LABS: ALBUMIN 3.9 g/dl (3.4-5.0); BLOOD UREA NITROGEN 13.5 mg/dL (7-18)
[2020-10-13 19:49] LABS: CREATININE 0.7 mg/dL (0.55-1.3)
[2020-10-13 19:50] LABS: BILIRUBIN,TOTAL 0.3 mg/dL (0.2-1); TOT PROT 7.7 g/dl (6.4-8.2)
[2020-10-13 23:59] VITALS: BP 110/74; PULSE 67; TEMP 98
== END 2020-10-14 01:51 | disposition home or self-care (01) ==
LOC: JER 17:57
DX: N61.0 Mastitis without abscess (principal)
CPT/HCPCS: 36415; 76641-TC-LT; 80053; 81003; 84703; 85025; 99284-25

== ENCOUNTER 2021-03-25 13:05 | Emergency (ER) | payer OTHER ==
[2021-03-25 13:31] VITALS: BP 110/60; PULSE 84; TEMP 98.7; BMI 29.2
[2021-03-25] MEDS ORDERED: methylPREDNISolone NA SUCC 40 MG/1 ML VIAL IVPUSH ONE (14:06)
[2021-03-25] MEDS ORDERED: DEXAMETHASONE SOD PHOSPHATE 10 MG/1 ML VIAL IM ONE (14:09)
[2021-03-25] MEDS ORDERED: ALBUTEROL SO4 2.5/IPRATROPIUM 0.5 INH SOL 3 ML VIAL.NEB. NEB ONE (14:33)
[2021-03-25] MEDS ORDERED: DEXAMETHASONE SOD PHOSPHATE 10 MG/1 ML VIAL ONE (14:34)
[2021-03-25] MEDS: ALBUTEROL SO4 2.5/IPRATROPIUM 0.5 INH SOL 3 ML VIAL.NEB. NEB SCH (14:53)
== END 2021-03-25 15:40 | disposition home or self-care (01) ==
LOC: JER 13:05
PROC: 3E0F7GC Introduction of Other Therapeutic Substance into Respiratory Tract, Via Natural or Artificial Opening (ICD-10-PCS; principal; 2021-03-25)
PROC: 3E023NZ Introduction of Analgesics, Hypnotics, Sedatives into Muscle, Percutaneous Approach (ICD-10-PCS; 2021-03-25)
PROC: 3E033GC Introduction of Other Therapeutic Substance into Peripheral Vein, Percutaneous Approach (ICD-10-PCS; 2021-03-25)
DX: J45.901 Unspecified asthma with (acute) exacerbation (principal)
CPT/HCPCS: 94640; 96372; 96374; 99284-25; C9803; J1100; U0003; U0005

== ENCOUNTER 2021-10-11 04:30 | Day surgery (SDC) | payer OTHER ==
[2021-10-10 10:02] VITALS: BMI 28.5
[2021-10-11 13:00] VITALS: BP 97/54; PULSE 75; TEMP 98
== END 2021-10-11 13:05 | disposition home or self-care (01) ==
LOC: JASU-ENDO 04:30
PROVIDERS: ATTEND Internal Medicine Gastroenterology
PROC: 0DJD8ZZ Inspection of Lower Intestinal Tract, Via Natural or Artificial Opening Endoscopic (ICD-10-PCS; principal; 2021-10-11 12:00)
DX: K62.5 Hemorrhage of anus and rectum (principal)
CPT/HCPCS: 81025

== ENCOUNTER → 2022-03-03 | Emergency (ER) | payer OTHER ==
[~2022-03-03] MED LIST: ALBUTEROL SO4 2.5/IPRATROPIUM 0.5 INH SOL 3 ML VIAL.NEB. NEB ONE; ALBUTEROL SO4 2.5/IPRATROPIUM 0.5 INH SOL 3 ML VIAL.NEB. NEB STA; predniSONE 20 MG TABLET (UD) ONE; predniSONE 20 MG TABLET (UD) PO ONE
[2022-03-03 22:49] VITALS: BP 98/70; PULSE 74; RESP 18; TEMP 98.7; BMI 27.4
== END | disposition home or self-care (01) ==
LOC: FER 22:43
PROC: 3E0F7GC Introduction of Other Therapeutic Substance into Respiratory Tract, Via Natural or Artificial Opening (ICD-10-PCS; principal; 2022-03-03)
DX: J45.901 Unspecified asthma with (acute) exacerbation (principal)
CPT/HCPCS: 99284-25

== ENCOUNTER 2022-03-16 16:50 | Emergency (ER) | payer OTHER ==
[2022-03-16 16:59] VITALS: BP 110/72; PULSE 80; RESP 20; TEMP 98.1; BMI 33.8
== END 2022-03-16 18:02 | disposition home or self-care (01) ==
LOC: FER 16:50
DX: J45.20 Mild intermittent asthma, uncomplicated (principal)
CPT/HCPCS: 99281-25

== ENCOUNTER 2022-03-31 16:59 | Emergency (ER) | payer OTHER ==
[2022-03-31 17:11] VITALS: BP 109/68; PULSE 79; RESP 16; TEMP 99.1; BMI 27.6
[2022-03-31] MEDS ORDERED: CLINDAMYCIN HCL 150 MG CAPSULE (FP) PO ONE (17:14)
[2022-03-31] MEDS ORDERED: CLINDAMYCIN HCL 150 MG CAPSULE (FP) ONE (17:18)
== END 2022-03-31 17:25 | disposition home or self-care (01) ==
LOC: FER 16:59
DX: N61.1 Abscess of the breast and nipple (principal)
CPT/HCPCS: 99283-25

== ENCOUNTER 2023-07-12 16:08 | Emergency (ER) | payer OTHER ==
[2023-07-12 16:18] VITALS: BP 111/70; PULSE 94; RESP 20; TEMP 98; BMI 30.9
[2023-07-12 16:59] LABS: URINE APPEARANCE CLEAR; URINE BILIRUBIN NEGATIVE (NEGATIVE); URINE COLOR YELLOW; URINE GLUCOSE (UA) NEGATIVE (NEGATIVE); URINE KETONE NEGATIVE (NEGATIVE); URINE LEUK ESTERASE NEGATIVE (NEGATIVE); URINE NITRITE NEGATIVE (NEGATIVE); URINE PROTEIN NEGATIVE (NEGATIVE); URINE UROBILINOGEN 0.2 mg/dL (0.2-1.0)
[2023-07-12 17:01] LABS: HCG,QUALITATIVE URINE Negative
[2023-07-12] MEDS ORDERED: KETOROLAC TROMETHAMINE 30 MG/1 ML VIAL ONE (17:28)
[2023-07-12] MEDS ORDERED: LIDOCAINE 4% PATCH TP ONE (17:28)
[2023-07-12] MEDS: KETOROLAC TROMETHAMINE 30 MG/1 ML VIAL IM ONE (17:33)
[2023-07-12] MEDS: LIDOCAINE 4% PATCH TP ONE (17:33)
== END 2023-07-12 18:02 | disposition home or self-care (01) ==
LOC: JER 16:08
PROC: 3E0233Z Introduction of Anti-inflammatory into Muscle, Percutaneous Approach (ICD-10-PCS; principal; 2023-07-12)
DX: M54.50 Low back pain, unspecified (principal); M62.830 Muscle spasm of back
CPT/HCPCS: 81003; 84703; 87086; 99284-25

== ENCOUNTER 2023-11-23 05:17 | Emergency (ER) | payer OTHER ==
[2023-11-23 05:22] VITALS: TEMP 98; BMI 26.5
[2023-11-23] MEDS: ACETAMINOPHEN 325 MG TABLET (FP) PO ONE (06:17)
[2023-11-23] MEDS ORDERED: FAMOTIDINE 10 MG TABLET ONE (06:46)
[2023-11-23] MEDS: FAMOTIDINE 10 MG TABLET PO ONE (06:59)
[2023-11-23] MEDS ORDERED: SUCRALFATE 1 GM TABLET (FP) ONE (07:31)
[2023-11-23 07:34] LABS: BASO % 0.7 % (0-2.0); EOS % 3.2 % (0-4.5); HEMATOCRIT 40.9 % (32.4-45.2); HEMOGLOBIN 13.8 GM/dL (10.7-15.3); LYMPH % 18.1 % (8-40); MCH 29.1 pg (25.7-33.7); MCHC 33.7 g/dl (32.0-36.0); MEAN CELL VOLUME 86.3 fl (80-96); MEAN PLT VOLUME 10.6 fl (7.5-11.1); MONO % 7.8 % (3.8-10.2); NEUT % 70.2 % (42.8-82.8); PLATELET COUNT 156 10^3/uL (134-434); RBC 4.75 M/mm3 (3.60-5.2); RDW 13.6 % (11.6-15.6); WHITE BLOOD COUNT 9.9 K/mm3 (4.0-10.0)
[2023-11-23] MEDS: SUCRALFATE 1 GM TABLET (FP) PO ONE (07:37)
[2023-11-23 07:38] LABS: CHLORIDE 105 mmol/L (98-107); POTASSIUM 4.2 mmol/L (3.5-5.1); SODIUM 137 mmol/L (136-145)
[2023-11-23 07:40] LABS: ALBUMIN 3.9 g/dl (3.4-5.0); ANION GAP 5 mmol/L (4-13); BLOOD UREA NITROGEN 13.3 mg/dL (7-18); CALCIUM 9.4 mg/dL (8.5-10.1); CO2 27 mmol/L (21-32); GLUCOSE,RANDOM 99 mg/dL (74-106)
[2023-11-23 07:43] LABS: SGPT/ALT 25 U/L (13-61)
[2023-11-23 07:44] LABS: CREATININE 0.7 mg/dL (0.55-1.3); SGOT/AST 12 U/L (15-37)
[2023-11-23 07:45] LABS: BILIRUBIN,TOTAL 0.3 mg/dL (0.2-1); TOT PROT 7.4 g/dl (6.4-8.2)
[2023-11-23 07:46] LABS: ALK PHOS 80 U/L (45-117)
[2023-11-23 08:12] LABS: PH,URINE 5.5 (5.0-8.0); URINE APPEARANCE CLEAR; URINE BILIRUBIN NEGATIVE (NEGATIVE); URINE COLOR YELLOW; URINE GLUCOSE (UA) NEGATIVE (NEGATIVE); URINE KETONE NEGATIVE (NEGATIVE); URINE LEUK ESTERASE NEGATIVE (NEGATIVE); URINE NITRITE NEGATIVE (NEGATIVE); URINE PROTEIN NEGATIVE (NEGATIVE); URINE UROBILINOGEN 0.2 mg/dL (0.2-1.0)
[2023-11-23 09:02] VITALS: BP 103/61; PULSE 70; RESP 14
== END 2023-11-23 09:02 | disposition home or self-care (01) ==
LOC: JER 05:17
DX: R10.13 Epigastric pain (principal)
CPT/HCPCS: 36415; 80053; 81003; 83690; 84702; 85025; 93005; 93010; 99284-25

== ENCOUNTER 2024-04-07 04:40 | Emergency (ER) | payer OTHER ==
[2024-04-07 04:44] VITALS: TEMP 98.4; BMI 27.4
[2024-04-07] MEDS ORDERED: MAG HYDROX/AL HYDROX/SIMETH 30 ML UNIT-DOSE CUP ONE (08:21)
[2024-04-07] MEDS ORDERED: FAMOTIDINE 20 MG TABLET ONE (08:21)
[2024-04-07] MEDS ORDERED: ONDANSETRON *ODT* 4 MG TABLET ONE (08:21)
[2024-04-07] MEDS: MAG HYDROX/AL HYDROX/SIMETH -MYLANTA- ORAL SUSPENSION PO ONE (08:23)
[2024-04-07] MEDS: ONDANSETRON *ODT* 4 MG TABLET SL ONE (08:23)
[2024-04-07] MEDS: FAMOTIDINE 20 MG TABLET PO ONE (08:23)
[2024-04-07 09:08] VITALS: BP 104/59; PULSE 66; RESP 15
== END 2024-04-07 09:09 | disposition home or self-care (01) ==
LOC: JER 04:40
DX: R10.13 Epigastric pain (principal); R11.0 Nausea
CPT/HCPCS: 84703; 99283-25; Q0162